=== PATIENT | female | born 1950 | race Caucasian/White ===

== ENCOUNTER 2016-09-17 20:27 | Inpatient (IN) | payer MEDICARE, OTHER ==
[~2016-09-17] VITALS: Ht 167.6 cm; Wt 101.4 kg
--- NOTE | ~2016-09-17 | CATH ---
Cardiac Diagnostic + PCI Report Demographics Patient Name VIKTORIA Raymond Gender Female Date of 1950 Age 66 year(s) Patient Number [id number] Date of Study 09/17/2016 Visit Number [id number] Room Number 310 Corporate ID Ht 167.64 cm Wt 98.88 kg Accession Number [id number] BSA 2.07 m kg/m Referring Reinaldo SULLIVAN Primary Physician Physician Jame Performing Reinaldo SULLIVAN Secondary Physician Physician Jame Diagnostic Reinaldo SULLIVAN Assisting Physician Physician Jame Interventional Reinaldo SULLIVAN Physician Machine Repairer Maintenance Physician Jame Findings and Conclusions Diagnostic Findings and Conclusion 1. 2 Vessel CAD. 2. Prox LAD 99% occluded with CATE 2 flow. 3. 90% mid D1 lesion. 4. Normal LVEDP at 4 mmHg. Diagnostic Recommendations 1. Immediate PCI to LAD D1. The first diagonal is going to be jailed by LAD stent which would make future pci to diagonal difficult so will treat D1 at this time. Interventional Findings and Conclusion 1. Successful PCI to 1st Diag with 2.25 x 12 Synergy PAYAL. 2. Successful PCI to LAD with 2.75 x 20 Synergy PAYAL jailing the first diagonal with no significant lesion in the ostial diagonal. Interventional Recommendations 1. Dual antiplatelet therapy. 2. Risk factor modifications. Procedure Description The patient was brought to the diagnostic cardiac catheterization- laboratory by emergency personal. Physician deemed procedure as EMERGENT. The planned puncture-incision site(s) were shaved and prepped with ChloraPrep and draped in the usual sterile manner. Conscious sedation, supplemental oxygen, and pain control medications were delivered by a registered nurse under physician guidance. Surface ECG rhythm, blood pressure measurement, and pulse oximetry were monitored throughout the procedure. Arterial access. The right radial access site was infiltrated with lidocaine. The vessel was entered with the Seldinger technique. A 6F sheath was advanced into the vessel and used for catheter placement. Selective left coronary angiography. A catheter was advanced into the left coronary vessel ostium under Fluoroscopic guidance. Contrast was injected by hand. Images were obtained in multiple projections. Selective right coronary angiography. A catheter was advanced into the right coronary vessel ostium under fluoroscopic guidance. Contrast was injected by hand. Images were obtained in multiple projections. Angioplasty and Stent Placement: A XB 3.5 guiding catheter was used to intubate the Prox LAD vessel. A 0.14 wire was then used to cross the lesion. A 2.5 x 12 Emerge balloon catheter was placed across the lesion and inflated. The balloon catheter was then removed. A 2.75 x 20 Synergy Drug Eluting Stent was placed and inflated. Post placement angiograms were performed. Angioplasty and Stent Placement: A XB 3.5 guiding catheter was used to intubate the 1st Diag vessel. A 0.14 wire was then used to cross the lesion. A 2.0x 8 balloon catheter was placed across the lesion and inflated. The balloon catheter was then removed. A 2.25x 12 Drug Eluting Stent was placed and inflated. Post placement angiograms were performed. IVUS was performed. The LAD vessel was cannulated. An .014 interventional wire was advanced across the lesson into the distal vessel. The IVUS catheter was advanced into position and imaging was performed. Vessel dimensions were measured. Arterial artery hemostasis was achieved with TR band. The patient was transferred to a regular nursing floor via cart accompanied by a nurse. The patient left the laboratory in stable condition. Diagnostic Cath Status: Emergency Procedure Procedure Type Diagnostic procedure:Angiography:, Coronary Angios w/[facility] PCI procedure:Drug Eluting Coronary Stent:, LAD, Diagonal, Additional Imaging:, IVUS:, Initial Vessel Indications: Chest pain. The procedure was explained in detail to the patient. Risks, complications and alternative treatments were reviewed. Written consent was obtained. Medications Reviewed with Patient prior to Procedure. Complications: No Complication. Angiographic Findings Dominance: Right Cardiac Arteries and Lesion Findings LMCA: Normal (0% Stenosis). LAD: Abnormal. Lesion on Prox LAD: 99% stenosis reduced to 0%. Pre procedure CATE II flow was noted. Post Procedure CATE III flow was present. The guidewire cross was successful.Culprit lesion. Devices used - PROWATER WIRE 0.014" X 180CM. Number of passes: 1. - CATH BAL RX EMERGE 2.5X12. 1 inflation(s) to a max pressure of: 10 john. - CATH STENT SYNERGY 2.75 X 20. 1 inflation(s) to a max pressure of: 16 john. - CATH BAL RX NC EMERGE 3.25X15. 2 inflation(s) to a max pressure of: 16 john. Lesion on 1st Dia% stenosis . Devices used - [employer] GUIDEWIRE 180CM. Number of passes: 1. - CATH BLN RX TREK 2.0X8MM. Diameter: 2 mm. Length: 8 mm. 1 inflation(s) to a max pressure of: 8 john. - CATH STENT SYNERGY 2.25 X 12. 1 inflation(s) to a max pressure of: 14 john. LCx: mild disease RCA: Abnormal. Lesion on Mid RCA: 50% stenosis . Coronary Tree Procedure Data Procedure Date Date: 09/17/2016Start: 09:29 PM Entry Locations - Percutaneous access was performed through the Right Radial artery (Primary location). A 6 Fr sheath was inserted. Hemostasis was successfully obtained using a TR band. Procedure Medications Order and Administration + + +---------+-------+ !Time !Medication !Dosage !Route ! + + +---------+-------+ !09/17/2016 !SF Radial Cocktail: 200mcg Nitro, 2.5 mg! ! ! !09:32 PM !Verapamil, 5000u Heparin ! ! ! + + +---------+-------+ 09/17/2016 !Versed !1 mg !I.V. ! !09:33 PM ! ! ! ! + + +---------+-------+ !09/17/2016 !Fentanyl !50 mcg !I.V. ! !09:33 PM ! ! ! ! + + +---------+-------+ !09/17/2016 !Sodium Chloride !10 ml !I.V. ! !09:34 PM ! ! ! ! + + +---------+-------09/17/2016 !Heparin (ACC_3) !3000 !I.V. ! !09:36 PM ! !units ! ! + + +---------+-------09/17/2016 !Brilinta (Ticagrelor) (ACC_20) !180 mg !P.O. ! !09:37 PM ! ! ! ! + + +---------+-------09/17/2016 !Nitroglycerin !200 mcg !I.C. ! !09:41 PM ! ! ! ! + + +---------+-------+ !09/17/2016 !Adenosine (IC) !20 !I.C. ! !09:42 PM ! ! ! ! + + +---------+-------+ !09/17/2016 !Nitroglycerin !200 mcg !I.C. ! !09:44 PM ! ! ! ! + + +---------+-------+ !09/17/2016 !Versed !1 mg !I.V. ! !09:45 PM ! ! ! ! + + +---------+-------+ 09/17/2016 !Fentanyl !25 mcg !I.V. ! !09:45 PM ! ! ! ! + + +---------+-------+ 09/17/2016 !Oxygen !2 l/min !NC ! !09:47 PM ! ! ! ! + + +---------+-------+ !09/17/2016 !Fentanyl !25 mcg !I.V. ! !09:57 PM ! ! ! ! + + +---------+-------+ !09/17/2016 !Versed !1 mg !I.V. ! !10:12 PM ! ! ! ! + + +---------+-------+ !09/17/2016 !Fentanyl !50 mcg !I.V. ! !10:12 PM ! ! ! ! + + +---------+-------+ !09/17/2016 !Versed !1 mg !I.V. ! !10:14 PM ! ! ! ! + + +---------+-------+ !09/17/2016 !Nitroglycerin !300 mcg !I.C. ! !10:14 PM ! ! ! ! + + +---------+-------+ !09/17/2016 !Nitroglycerin !300 mcg !I.C. ! !10:28 PM ! ! ! ! + + +---------+-------+ !09/17/2016 !Fentanyl !50 mcg !I.V. ! !10:30 PM ! ! ! ! + + +---------+-------+ Devices Used - A6F TIG CATHETERwas used for:Coronary Angios. - AGUIDE CATHETER 6FR XB 3.5 100CMwas used for:LAD Intervention. - ACATH 6FR PIG 145 110CM CATHETERwas used for:LV Pressures. Contrast Material - Isovue [id number] ml Fluoroscopy Time: Diagnostic: 16:30 minutes. Total: 16:30 minutes. Fluoroscopy Dose: Diagnostic: 2167 mGy. Total: 2167 mGy. Estimated Blood Loss: 11 ml. Admission Data Admission Date: 09/17/2016 Admission Time: 10:30 PM Insurance Payors: Medicare. Hemodynamics Condition: Rest Estimated: Heart Rate: 63 bpm Pressures (mmHg) +-----+ + !Site !Pressure ! +-----+ + !AO !151/74 (99) ! +-----+ + !LV !149/0 ,5 ! +-----+ + !AO !162/73 (111) ! +-----+ + !LV !143/1 ,4 ! +-----+ + Valve Gradients and Areas + +---------+---------+---------+ +---------+ + !Valve !Peak !Mean !Area !Index !Flow !Source ! + +---------+---------+---------+ +---------+ + !Aortic !0 !0 ! ! ! ! ! + +---------+---------+---------+ +---------+ + !Aortic !0 !0 ! ! ! ! ! + +---------+---------+---------+ +---------+ + Signatures
--- NOTE | ~2016-09-17 | ECH ---
Transthoracic Echocardiography Report (TTE) Demographics Patient Name GUCCI BLUM Date of Study 09/18/2016 Patient Number [id number] Visit Number [id number] Date of 1950 Room Number 310 Accession Number [id number] Gender Female Age 66 year(s) Referring Eulalio Clifford Digital Computer Operator Latoya Ely Physician RDCS Physician Interpreting Reinaldo SULLIVAN Display Specialist Physician Jame Supervising Ordering Physician Reinaldo SULLIVAN MD/[facility]ART[facility] [place] Nurse Stress Raw Finish Mill Operator Conclusions Contractility Score Summary At rest the following contractility abnormalities were noted: Hypokinesis of the Apical anterior and the Apical cap segments. Contractility of all other segments appeared normal. Summary Technically fair exam. The estimated left ventricular ejection fraction is 60%. Mild concentric left ventricular hypertrophy. No significant valvular abnormalities. Recommendation The patient was given the results of the exam during their hospital stay. Procedure Type of Study TTE procedure:Echo Complete SF. Procedure Date Date: 09/18/2016 Start: 01:33 PM Technical Quality: Fair due to poor acoustical window. Indications:Chest pain, Diabetes and Hypertension. Additional Indications:STEMI,s/p stents Appropriate Use Criteria: 9 Height: 66 inches Weight: 218 pounds BSA: 2.07 m Rhythm: NSR HR: 60 bpm BP: 186/69 mmHg M-Mode/2D Measurements LV Diastolic Dimension: 4.81 cm LV Systolic Dimension: 3.25 cm LV Septum Diastolic: 1.3 cm LV PW Diastolic: 1.22 cm AO Root Dimension: 2.55 cm Cardiac Output: 2.64 l/min LA Dimension: 3.63 cm Cardiac Index: 1.28 l/min*m RV Diastolic Dimension: 3.16 cm LA volume index: 25 ml/m LVOT: 1.76 cm LVOT VTI: 18.11 cm RV Base: 3 cm LV Stroke volume: 44.04 ml RV Mid: 2 cm LV Stroke volume index: 21.28 ml/m TAPSE: 2.4 cm TDI-S': 13 cm/s Doppler Measurements AV Peak Velocity: 1.2 m/s MV Peak E-Wave: 0.98 m/s AV Peak Gradient: 5.76 mmHg MV Peak A-Wave: 0.68 m/s AV Mean Gradient: 3.2 mmHg MV E/A Ratio: 1.43 LVOT Peak Velocity: 0.77 m/s MV P1/2t: 73.6 msec AV Area (Continuity):2.04 cm MV Deceleration Time: 253.9 msec MV Area (PHT): 2.99 cm PV Peak Velocity: 1 m/s E' Septal Velocity: 0.13 m/s PV Peak Gradient: 3.99 mmHg E' Lateral Velocity: 0.09 m/s A' Septal Velocity: 0.06 m/s A' Lateral Velocity: 0.07 m/s RA Area: 13.59 cm Findings Left Ventricle The left ventricle is normal in size . Mild concentric left ventricular hypertrophy. Diastolic assessment reveals normal relaxation. Right Ventricle Normal right ventricle structure and function. Left Atrium Normal left atrial size. Right Atrium Normal right atrial size. Mitral Valve Normal mitral valve structure and function. Mild mitral regurgitation by color Doppler. Aortic Valve The aortic valve was not well imaged. Tricuspid Valve Normal tricuspid valve structure and function. No tricuspid regurgitation by color Doppler. Pulmonic Valve The pulmonic valve is not well visualized. Pericardial Effusion No evidence of pericardial effusion. Miscellaneous Visualized portions of the aortic root and ascending aorta appear normal in size. Pleural Effusion No evidence of pleural effusion. Contractility Score LV regional wall motion:(0-Non visualized 1-Normal 2-Hypokinesis 3-Akinesis 4-Dyskinesis 5-Aneurysm) Signature
--- NOTE | 2016-09-18 17:03 | HP ---
ADMIT: 09/17/2016 RM/LOC: 310 [facility] MR#: [id number] [facility]#: [id number] [address] [facility] [address] [place], [place] [address] GUCCI BLUM [address] [place] [address] History and Physical SEX: F AGE: 66 : 1950 DATE OF SERVICE: REASON FOR ADMISSION: Acute anterior ST-elevation myocardial infarction. HISTORY OF PRESENT ILLNESS: Gucci is a pleasant 66-year-old female with no prior cardiac history, who presented with about an hour of substernal chest discomfort and was found on EKG to have ST elevations in V1, V2, and partly in V3. She states she has been having these episodes about every 2 to 3 days for the last two weeks. She has had all of those for a very short in duration. This evening this started about an hour ago. There was heaviness in her chest. She was short of breath, nauseous. She also was diaphoretic. She after this did not resolve like her prior episode. She presented to the emergency room. She had just seen Dr. Tsai on Tuesday, but was not having chest pain at that time, but had an EKG that was unremarkable. She was scheduled for a stress test on Tuesday. PAST MEDICAL HISTORY: 1. History of hypertension. 2. Hyperlipidemia, intolerant to statins. 3. Diabetes. 4. History of hiatal hernia, status post surgery. 5. History of thyroid surgery. 6. History of hysterectomy. ALLERGIES: TO CODEINE. MEDICATIONS: She is on: 1. Pioglitazone 30 mg daily. 2. Valsartan 80 mg daily. 3. Omeprazole 20 mg twice a day. 4. Citalopram 40 mg daily. 5. Synthroid 150 mcg daily. SOCIAL HISTORY: She is retired from banking. She is and accompanied by her . She does not smoke. Denies any significant alcohol use. Denies any illicit drug use. FAMILY HISTORY: Denies any family history of early coronary artery disease. REVIEW OF SYSTEMS: GENERAL: Denies fatigue, fever, chills, sweats, rash, or weight loss. EYES: Denies double vision, blurred vision, cataracts, or glaucoma. ENT: Denies hearing loss or problems with nose, mouth or throat. PULMONARY: Denies cough, sputum production, asthma, emphysema or bronchitis. Denies snoring loudly, wakefulness at night, or fatigue upon awakening. CARDIAC: As per HPI. GASTROINTESTINAL: Denies heartburn or difficulty swallowing. No change in bowel habits. Denies dark or bloody stools. No history of ulcers, hiatal hernia, or gallbladder or liver disease. ADMIT: 09/17/2016 RM/LOC: 310 [facility] MR#: [id number] [address] [place], [place] [id number] [place], [place] [address] [address] History and Physical SEX: F AGE: 66 : 1950 GENITOURINARY: Denies dysuria, hematuria, nocturia, urinary tract infection, or kidney stones. Denies history of renal insufficiency or failure. MUSCULOSKELETAL: Denies history of arthritis or gout. Denies muscle or joint pains. ENDOCRINE: Denies history of thyroid dysfunction or diabetes. HEMATOLOGIC: Denies history of anemia, easy bruising, or cancer. NEUROLOGIC: Denies chronic headaches, dizziness, syncope, stroke, seizures or numbness or tingling. PSYCHIATRIC: She has a history of depression. PHYSICAL EXAMINATION: VITAL SIGNS: Blood pressure is 140/70, pulse was 62, respirations 22, and saturation 93%. GENERAL: She is uncomfortable, in mild distress. She is alert and oriented. SKIN: [place], warm and dry. EYES: Sclerae clear. No xanthelasmas. ENT: Oral mucosa is pink and moist. No jugular venous distention or carotid bruits. CHEST: Respirations are even and unlabored. Lungs are clear to auscultation. HEART: Regular rate and rhythm. Normal S1, S2. No murmurs, rubs or gallops. ABDOMEN: Soft and nontender. MUSCULOSKELETAL: Gait is normal. EXTREMITIES: Peripheral pulses palpable. No clubbing, cyanosis or edema. PSYCHIATRIC: Alert and oriented. Mood and affect are appropriate. DIAGNOSTIC DATA: EKG shows ST elevations in V1 and V2. IMPRESSION AND PLAN: 1. Acute anterior ST-elevation myocardial infarction. 2. Hypertension. 3. Hyperlipidemia. 4. Diabetes mellitus. RECOMMENDATIONS: We will proceed emergently to cardiac catheterization. I discussed the risks and benefits which include but not limited to, stroke, heart attack, , bleeding, infection, renal failure. The patient understands these risks and agrees to proceed. We will have further recommendations as her care progresses. Jame Najera MD/ gustavo JOB #: [id number] CC: Trinh Tsai, Attending Physician Trinh Tsai, Family Physician
--- NOTE | 2016-09-19 01:40 | ER ---
ADMIT: 09/17/2016 RM/LOC: ER [facility] MR#: [id number] [id number] [place], [place] [address] GUCCI BLUM [address] [place] [address] Emergency Room Report SEX: F AGE: 66 : 1950 DATE: 09/17/2016 ADDENDUM: See T-sheet for complete H and P. A 66-year-old female, who comes in with substernal chest pain. It has been going on for approximately an hour. She did have some episodes of this earlier in the week and actually was seen at her primary care physician's office. She was having no pain when she was seen at the office. She had an EKG which was apparently unremarkable. She was set up to get a stress test done this coming Tuesday. She comes in tonight with severe pain worse than she had earlier today. We had an EKG done which shows ST elevation in leads V1, V2, and some in V3. At that time, I went ahead and activated the STEMI order set and contacted Dr. Najera. Dr. Najera did evaluate the patient in the ER and she was brought to go to the feed mill lab technician. She was given aspirin, metoprolol, and nitroglycerin while in the ER and her pain began to improve before she went to the feed mill lab technician. The patient is taken to feed mill lab technician in critical condition with a diagnosis of acute myocardial infarction, anterior STEMI. Ja Rodríguez MD/ gustavo JOB #: [id number] CC: Ja Rodríguez MD, Attending Physician Trinh Tsai MD, Family Physician
[2016-09-20] MEDS ORDERED: TRESIBA FL200 UNIT/1 SQ (13:28)
[2016-09-20] MEDS ORDERED: ACTOS DPS30 MG PO (13:29)
[2016-09-20] MEDS ORDERED: CELEXA40 MG PO (13:29)
[2016-09-20] MEDS ORDERED: DIOVAN160 MG PO (13:29)
[2016-09-20] MEDS ORDERED: PRILOSEC DPS20 MG PO (13:29)
[2016-09-20] MEDS ORDERED: NORVASC2.5 MG PO (13:30)
[2016-09-20] MEDS ORDERED: CARVEDILOL3.125 MG PO (13:30)
[2016-09-20] MEDS ORDERED: SYNTHROID150 MCG PO (13:30)
[2016-09-20] MEDS ORDERED: ASA CHILDREN'S81 MG PO (13:30)
[2016-09-20] MEDS ORDERED: BRILINTA90 MG PO (13:30)
[2016-09-20] MEDS ORDERED: NITROSTAT0.4 MG SL (13:31)
[2016-09-20] MEDS ORDERED: LIVALO2 MG PO (13:31)
--- NOTE | 2016-10-21 10:49 | CO ---
ADMIT: 09/17/2016 RM/LOC: 310 [facility] MR#: [id number] [address] [place] [id number] GUCCI BLUM [address] [place] [address] Consultation SEX: F AGE: 66 : 1950 DATE OF CONSULTATION: 09/18/2016 ATTENDING PHYSICIAN: Trinh Tsai CONSULTING PHYSICIAN: Ovi Velasquez MD I have asked to see Gucci Blum, who was admitted through the Emergency Room with the onset of chest pain and elevated CK and abnormal EKG with anteroseptal myocardial infarction pattern. She is a patient, who started having new onset of angina or at least atypical chest pain a week ago. She was seen and evaluated, did not have any chest pain at the time of the evaluation, but had a normal EKG. By mutual arrangement with Dr. Tsai, a stress test scheduled for this coming week. She started having unrelenting chest pain and came to the Emergency Room with the above on 09/17/[address] Najera took her to the catheterization lab finding the high-grade mid LAD lesion requiring stenting. Other diagnostic studies are pending. She is a diabetic patient with hypertension, hyperlipidemia, on insulin management over the last number of years. She has not had, however, any retinopathy or neuropathy. REVIEW OF SYSTEMS: Otherwise negative for any recent symptomatology. PHYSICAL EXAMINATION: GENERAL: Pleasant white female, in no acute distress. HEAD AND NECK: Otherwise unremarkable. HEART: Otherwise unremarkable. LUNGS: Otherwise, unremarkable this stay with clear lung dominguez. ABDOMEN: Benign. EXTREMITIES: Unremarkable with good peripheral pulses and no evidence of any current sensory neuropathy and minimal venous changes. ADMIT: 09/17/2016 RM/LOC: 310 [facility] MR#: [id number] [address] [place], [place] [address] [place], [place] [address] GUCCI BLUM [address] [place] [address] Consultation SEX: F AGE: 66 : 1950 EKG shows anteroseptal NM pattern and her CK is approximately 1000. IMPRESSION: 1. Recent myocardial infarction. 2. New onset of angina. 3. Diabetes. 4. Hypertension. 5. Hyperlipidemia. TREATMENT: We will follow with Dr. Najera and adjust her insulin management for her better intake. Watch her blood pressure carefully. Ensure long-term adequate risk management. Ovi Velasquez MD/ gustavo JOB #: [id number] CC: Trinh Tsai, Attending Physician Trinh Tsai, Family Physician
--- NOTE | 2016-11-29 14:52 | DS ---
ADMIT: 09/17/2016 RM/LOC: 310 [facility] MR#: [id number] [address] [facility] [address] [place] [id number] GUCCI LBUM [address] [place] [address] Discharge Summary SEX: F AGE: 66 : 1950 ADMISSION DATE: 09/17/2016 DISCHARGE DATE: 09/19/2016 DISMISSAL DIAGNOSES: 1. Myocardial infarction. 2. Proximal LAD 90% occlusion and 90% mid diagonal occlusive disease. 3. PCI first diagonal 2.25 x 12 synergy PAYAL. 4. Successful PCI to the LAD, 2.75 x 20 synergy PAYAL with first diagonal jailing. 5. Diabetes. 6. Hypertension. 7. Hyperlipidemia. Ovi Velasquez MD/ modl JOB #: [id number] CC: Jame Najera MD, Attending Physician Trinh Tsai MD, Family Physician MD Trinh Reed MD
== END 2016-09-19 12:47 | disposition home or self-care (01) | DRG 247 ==
LOC: ER 20:27 → 3ICU 22:30
PROVIDERS: ADMIT Internal Medicine Cardiovascular Disease
PROC: B2111ZZ Fluoroscopy of Multiple Coronary Arteries using Low Osmolar Contrast (ICD-10-PCS; principal; 2016-09-17)
PROC: 4A023N7 Measurement of Cardiac Sampling and Pressure, Left Heart, Percutaneous Approach (ICD-10-PCS; principal; 2016-09-17)
PROC: B240ZZ3 Ultrasonography of Single Coronary Artery, Intravascular (ICD-10-PCS; principal; 2016-09-17)
PROC: 027135Z Dilation of Coronary Artery, Two Arteries with Two Drug-eluting Intraluminal Devices, Percutaneous Approach (ICD-10-PCS; principal; 2016-09-17)
DX: I21.09 ST elevation (STEMI) myocardial infarction involving other coronary artery of anterior wall (principal); I10 Essential (primary) hypertension; I25.10 Atherosclerotic heart disease of native coronary artery without angina pectoris; E78.5 Hyperlipidemia, unspecified; E11.9 Type 2 diabetes mellitus without complications; F32.9 Major depressive disorder, single episode, unspecified